=== PATIENT | female | born 1990 | race Caucasian/White ===

== ENCOUNTER 2020-02-12 18:21 | Emergency (ER) | payer BC ==
[2020-02-12 18:25] VITALS: RESP 18; TEMP 98.6
--- NOTE | 2020-02-12 18:54 | ED ---
General Adult HPI - General Chief complaint: Vaginal Bleeding Stated complaint: Approx 8 wks preg - bleeding Time Seen by Provider: 02/12/20 18:25 Source: patient Mode of arrival: ambulatory Limitations: no limitations - History of Present Illness Initial comments: Patient is a 29-year-old previously healthy female presents emergency room with reported vaginal bleeding. Last menstrual cycle was December 13. She took a test mid January which was positive. She is . Follow up with the primary care physician last week who referred her to an [facility] [facility]. Patient states she has just to establish care with them for [facility] She began having some vaginal bleeding yesterday. States that it is brown in color however she is not saturating any pads. She does admit to suprapubic cramping. Denies any abdominal trauma. Believes she is O- blood type. No vaginal discharge. No hematuria, dysuria or difficulty voiding. No changes in her bowel habit. No fevers or chills. No other alleviating, precipitating or modifying factors. - Related Data Home Medications Medication Instructions Recorded Confirmed Xfd-Pfpe-Guppb Acid 1 cap PO DAILY 02/12/20 02/12/20 [-U Capsule (formulary)] Allergies Allergy/AdvReac Type Severity Reaction Status Date / Time cefpodoxime [From Vantin] Allergy Unknown Verified 02/12/20 19:00 clarithromycin [From Biaxin] Allergy Unknown Verified 02/12/20 19:00 Review of Systems ROS Statement: Those systems with pertinent positive or pertinent negative responses have been documented in the HPI. ROS Other: All systems not noted in ROS Statement are negative. Past Medical History Past Medical History: No Reported History History of Any Multi-Drug Resistant Organisms: None Reported Past Surgical History: Back Surgery, Hernia Repair Additional Past Surgical History / Comment(s): eye surgery Past Psychological History: No Psychological Hx Reported Smoking Status: Never smoker Past Alcohol Use History: Occasional Past Drug Use History: None Reported General Exam Limitations: no limitations Course Vital Signs 02/12/20 02/12/20 18:23 21:18 Temperature 98.6 F 98.6 F Pulse Rate 96 88 Respiratory 18 18 Rate Blood Pressure 155/87 132/77 O2 Sat by Pulse 99 99 Oximetry Medical Decision Making - Medical Decision Making Upon review the patient is placed in room 10. A thorough history and physical exam is performed. Laboratory studies are conducted and the patient had an ultrasound performed. The patient is O-. Ultrasound demonstrates intrauterine sac with pole and yolk sac. No cardiac activity. Discuss results with the patient. She is given RhoGAM. The results are discussed with Dr. Fajardo. Patient will return to the emergency department or outpatient lab in 2 days to have repeat beta Quant drawn. Call the office tomorrow to make a quicker appointment with her GRE[facility]ETING SPECIALIST. She understood this. Return to the emergency room for any new or worsening symptoms. Patient was discharged home in stable condition - Lab Data Result diagrams: 02/12/20 19:24 02/12/20 19:24 Lab Results 02/12/20 02/12/20 02/12/20 Range/Units 19:24 19:24 19:24 WBC 9.8 (3.8-10.6) k/uL RBC 4.02 (3.80-5.40) m/uL Hgb 12.7 (11.4-16.0) gm/dL Hct 36.7 (34.0-46.0) % MCV 91.3 (80.0-100.0) fL MCH 31.6 (25.0-35.0) pg MCHC 34.6 (31.0-37.0) g/dL RDW 12.0 (11.5-15.5) % Plt Count 152 (150-450) k/uL MPV 8.0 Neutrophils % 83 % Lymphocytes % 10 % Monocytes % 5 % Eosinophils % 1 % Basophils % 0 % Neutrophils # 8.1 H (1.3-7.7) k/uL Lymphocytes # 1.0 (1.0-4.8) k/uL Monocytes # 0.5 (0-1.0) k/uL Eosinophils # 0.1 (0-0.7) k/uL Basophils # 0.0 (0-0.2) k/uL PT (9.0-12.0) sec INR (<1.2) APTT (22.0-30.0) sec Sodium 137 (137-145) mmol/L Potassium 3.5 (3.5-5.1) mmol/L Chloride 104 (98-107) mmol/L Carbon Dioxide 26 (22-30) mmol/L Anion Gap 7 mmol/L BUN 24 H (7-17) mg/dL Creatinine 0.76 (0.52-1.04) mg/dL Est GFR (CKD-EPI)AfAm >90 (>60 ml/min/1.73 sqM) Est GFR (CKD-EPI)NonAf >90 (>60 ml/min/1.73 sqM) Glucose 108 H (74-99) mg/dL Calcium 9.4 (8.4-10.2) mg/dL Total Bilirubin 0.6 (0.2-1.3) mg/dL AST 26 (14-36) U/L ALT 26 (4-34) U/L Alkaline Phosphatase 55 (38-126) U/L Total Protein 6.9 (6.3-8.2) g/dL Albumin 4.2 (3.5-5.0) g/dL HCG, Quant mIU/mL Urine Color Urine Appearance (Clear) Urine pH (5.0-8.0) Ur Specific [place] (1.001-1.035) Urine Protein (Negative) Urine Glucose (UA) (Negative) Urine Ketones (Negative) Urine Blood (Negative) Urine Nitrite (Negative) Urine Bilirubin (Negative) Urine Urobilinogen (<2.0) mg/dL Ur Leukocyte Esterase (Negative) Urine RBC (0-5) /hpf Urine WBC (0-5) /hpf Ur Squamous Epith Cells (0-4) /hpf Urine HCG, Qual Detected (Not Detectd) Blood Type Blood Type Confirm Blood Type Recheck Bld Type Recheck Status Antibody Screen 02/12/20 02/12/20 02/12/20 Range/Units 19:24 19:24 19:24 WBC (3.8-10.6) k/uL RBC (3.80-5.40) m/uL Hgb (11.4-16.0) gm/dL Hct (34.0-46.0) % MCV (80.0-100.0) fL MCH (25.0-35.0) pg MCHC (31.0-37.0) g/dL RDW (11.5-15.5) % Plt Count (150-450) k/uL MPV Neutrophils % % Lymphocytes % % Monocytes % % Eosinophils % % Basophils % % Neutrophils # (1.3-7.7) k/uL Lymphocytes # (1.0-4.8) k/uL Monocytes # (0-1.0) k/uL Eosinophils # (0-0.7) k/uL Basophils # (0-0.2) k/uL PT 9.9 (9.0-12.0) sec INR 0.9 (<1.2) APTT 26.2 (22.0-30.0) sec Sodium (137-145) mmol/L Potassium (3.5-5.1) mmol/L Chloride (98-107) mmol/L Carbon Dioxide (22-30) mmol/L Anion Gap mmol/L BUN (7-17) mg/dL Creatinine (0.52-1.04) mg/dL Est GFR (CKD-EPI)AfAm (>60 ml/min/1.73 sqM) Est GFR (CKD-EPI)NonAf (>60 ml/min/1.73 sqM) Glucose (74-99) mg/dL Calcium (8.4-10.2) mg/dL Total Bilirubin (0.2-1.3) mg/dL AST (14-36) U/L ALT (4-34) U/L Alkaline Phosphatase (38-126) U/L Total Protein (6.3-8.2) g/dL Albumin (3.5-5.0) g/dL HCG, Quant mIU/mL Urine Color Light Yellow Urine Appearance Clear (Clear) Urine pH 5.5 (5.0-8.0) Ur Specific [place] 1.019 (1.001-1.035) Urine Protein Negative (Negative) Urine Glucose (UA) Negative (Negative) Urine Ketones Trace H (Negative) Urine Blood Moderate H (Negative) Urine Nitrite Negative (Negative) Urine Bilirubin Negative (Negative) Urine Urobilinogen <2.0 (<2.0) mg/dL Ur Leukocyte Esterase Negative (Negative) Urine RBC 70 H (0-5) /hpf Urine WBC 1 (0-5) /hpf Ur Squamous Epith Cells <1 (0-4) /hpf Urine HCG, Qual (Not Detectd) Blood Type O Negative Blood Type Confirm Blood Type Recheck No Previous Record Bld Type Recheck Status CABO Indicated Antibody Screen NEGATIVE 02/12/20 02/12/20 Range/Units 19:24 19:58 WBC (3.8-10.6) k/uL RBC (3.80-5.40) m/uL Hgb (11.4-16.0) gm/dL Hct (34.0-46.0) % MCV (80.0-100.0) fL MCH (25.0-35.0) pg MCHC (31.0-37.0) g/dL RDW (11.5-15.5) % Plt Count (150-450) k/uL MPV Neutrophils % % Lymphocytes % % Monocytes % % Eosinophils % % Basophils % % Neutrophils # (1.3-7.7) k/uL Lymphocytes # (1.0-4.8) k/uL Monocytes # (0-1.0) k/uL Eosinophils # (0-0.7) k/uL Basophils # (0-0.2) k/uL PT (9.0-12.0) sec INR (<1.2) APTT (22.0-30.0) sec Sodium (137-145) mmol/L Potassium (3.5-5.1) mmol/L Chloride (98-107) mmol/L Carbon Dioxide (22-30) mmol/L Anion Gap mmol/L BUN (7-17) mg/dL Creatinine (0.52-1.04) mg/dL Est GFR (CKD-EPI)AfAm (>60 ml/min/1.73 sqM) Est GFR (CKD-EPI)NonAf (>60 ml/min/1.73 sqM) Glucose (74-99) mg/dL Calcium (8.4-10.2) mg/dL Total Bilirubin (0.2-1.3) mg/dL AST (14-36) U/L ALT (4-34) U/L Alkaline Phosphatase (38-126) U/L Total Protein (6.3-8.2) g/dL Albumin (3.5-5.0) g/dL HCG, Quant 6460.6 mIU/mL Urine Color Urine Appearance (Clear) Urine pH (5.0-8.0) Ur Specific [place] (1.001-1.035) Urine Protein (Negative) Urine Glucose (UA) (Negative) Urine Ketones (Negative) Urine Blood (Negative) Urine Nitrite (Negative) Urine Bilirubin (Negative) Urine Urobilinogen (<2.0) mg/dL Ur Leukocyte Esterase (Negative) Urine RBC (0-5) /hpf Urine WBC (0-5) /hpf Ur Squamous Epith Cells (0-4) /hpf Urine HCG, Qual (Not Detectd) Blood Type Blood Type Confirm O Negative Blood Type Recheck Bld Type Recheck Status Antibody Screen Disposition Clinical Impression: Vaginal bleeding, Threatened miscarriage, Rh negative status during Disposition: HOME SELF-CARE Condition: Stable Instructions (If sedation given, give patient instructions): Threatened Miscarriage (ED) Additional Instructions: You need to come to the outpatient lab on Wednesday to have your lab studies drawn. Call the [facility] tomorrow to schedule a sooner appointment. Take tylenol for pain. You will need a repeat ultrasound in 1 week. Return to the emergency department for any new or worsening symptoms Is patient prescribed a controlled substance at d/c from ED?: No Referrals: Jose Elias Joseph MD [Primary Care Provider] - 1-2 days Chelsea Kim DO [Doctor of Osteopathic Medicine] - 1-2 days Time of Disposition: 21:06
[2020-02-12 19:38] LABS: Basophils % (A) 0 %; Eosinophils # (A) 0.1 k/uL (0-0.7); Eosinophils % (A) 1 %; HCT 36.7 % (34.0-46.0); HGB 12.7 gm/dL (11.4-16.0); Lymphocytes % (A) 10 %; MCH 31.6 pg (25.0-35.0); MCHC 34.6 g/dL (31.0-37.0); MCV 91.3 fL (80.0-100.0); Monocytes # (A) 0.5 k/uL (0-1.0); Monocytes % (A) 5 %; Neutrophils # (A) 8.1 k/uL (1.3-7.7); Neutrophils % (A) 83 %; Platelet Count 152 k/uL (150-450); RBC 4.02 m/uL (3.80-5.40); WBC 9.8 k/uL (3.8-10.6)
[2020-02-12 19:46] LABS: Appearance,Urine Clear (Clear); Bilirubin,Urine Negative (Negative); Blood,Urine Moderate (Negative); Color,Urine Light Yellow; Glucose,Urine (UA) Negative (Negative); Ketones,Urine Trace (Negative); Leukocyte Esterase,Urine Negative (Negative); Nitrite,Urine Negative (Negative); PH, Urine 5.5 (5.0-8.0); Protein,Urine Negative (Negative); RBC,Urine 70 /hpf (0-5); Specific Gravity,Urine 1.019 (1.001-1.035); Squamous Epithelial Cell,Urine <1 /hpf (0-4); Urobilinogen,Urine <2.0 mg/dL (<2.0); WBC,Urine 1 /hpf (0-5)
[2020-02-12 19:47] LABS: ALT 26 U/L (4-34); AST 26 U/L (14-36); African American GFR (CKD) >90 (>60 ml/min/1.73 sqM); Albumin 4.2 g/dL (3.5-5.0); Alkaline Phosphatase 55 U/L (38-126); Anion Gap 7 mmol/L; Blood Urea Nitrogen 24 mg/dL (7-17); Calcium 9.4 mg/dL (8.4-10.2); Carbon Dioxide 26 mmol/L (22-30); Chloride 104 mmol/L (98-107); Glucose 108 mg/dL (74-99); Non-African American GFR(CKD) >90 (>60 ml/min/1.73 sqM); Potassium 3.5 mmol/L (3.5-5.1); Sodium 137 mmol/L (137-145); Total Bilirubin 0.6 mg/dL (0.2-1.3); Total Protein 6.9 g/dL (6.3-8.2)
[2020-02-12 19:49] LABS: INR 0.9 (<1.2); Partial Thromboplastin Time 26.2 sec (22.0-30.0); Prothrombin Time 9.9 sec (9.0-12.0)
[2020-02-12] MEDS ORDERED: Rhogam IMMUNE GLOBULIN 1,500 UNIT/1 ML IM ONE (20:28)
--- NOTE | 2020-02-12 20:29 | US ---
EXAMINATION TYPE: Transabdominal DATE OF EXAM: 02/12/2020 8:13 PM COMPARISON: NONE CLINICAL HISTORY: pain. Pain x 2 days. . EXAM PERFORMED: Transvaginal (TV) and Transabdominal (TA) EXAM MEASUREMENTS: GESTATIONAL AGE / DATING Physician Established: Not yet established. Dates by LMP: ( 8 weeks/4 days) EDC: 09/19/2020 Dates by First Scan: This is first scan Dates by Current Scan for: (6 weeks/0 days) EDC: 10/07/2020 MATERNAL ANATOMY Uterus: 8.6 x 5.8 x 4.8 cm. Anteverted. Gestational sac appears to be in the mid-lower uterine area. Right Ovary: 3.1 x 1.9 x 1.6 cm. Left Ovary: 3.5 x 1.9 x 2.7 cm. Area of mixed echogenicity and peripheral vascularity seen as mention ed below measurin.7 x 1.3 x 1.7 cm. Post CDS / Adnexa: Fluid seen in CDS and right adnexa. Presence of free fluid: Yes Presence of corpus luteal cyst: Area of mixed echogenicity and peripheral vascularity seen in left ov mirna measurin.7 x 1.3 x 1.7 cm. Presence of subchorionic bleed: Hypoechoic area seen adjacent to the gestational sac: 0.8 x 1.6 x 1.0 cm. GESTATION / SURVEY CRL: 0.37 cm. (6 weeks/0 days) Yolk Sac (normal less than 6mm): 2.1 mm. Heart Rate: Not detected at this time. Possibly too early to see heart tones? IUP: CRL visualized, no heart tones seen at this time. Possibly too early to visualize. Date of LMP: 12/14/2019 Beta HcG (if available): Detected IMPRESSION: Intrauterine Gestational sac with pole and yolk sac. Follow-up exam is recommended in 10 days t o confirm cardiac activity. Gestational sac is slightly low in the endometrial cavity. No evidence of ectopic .
[2020-02-12 21:19] VITALS: BP 132/77; PULSE 88
== END 2020-02-12 21:28 | disposition home or self-care (01) ==
LOC: EC 18:21
DX: O20.0 Threatened abortion (principal); O26.899 Other specified pregnancy related conditions, unspecified trimester; Z88.1 Allergy status to other antibiotic agents
CPT/HCPCS: 36415; 86900; 86901; 80053; 85025; 85610; 85730; 86850; 81001; 81025; 84702; 87086; 76801; 76817; 99284; 96372; J2791

== ENCOUNTER → 2020-02-14 | Outpatient (CLI) | payer BC | END | disposition home or self-care (01) | LOC: LABMAIN 19:34 | PROVIDERS: ATTEND Emergency Medicine | DX: O20.0 Threatened abortion (principal) | CPT/HCPCS: 36415; 84702 ==

== ENCOUNTER 2021-01-04 10:00 | Inpatient (IN) | payer BC ==
[2021-01-04] MEDS ORDERED: OXYTOCIN 10 UNIT/ML 1 ML VIAL IM PRN (11:00)
[2021-01-04] MEDS ORDERED: CARBOPROST TROMETHAMINE 250 MCG/ML 1 ML AMP IM PRN (11:00)
[2021-01-04] MEDS ORDERED: METHYLERGONOVINE 0.2 MG/ML 1 ML AMP IM PRN (11:00)
[2021-01-04] MEDS ORDERED: TERBUTALINE 1 MG/ML VIAL SQ PRN (11:00)
[2021-01-04] MEDS ORDERED: PENICILLIN G POTASSIUM 5,000,000 UNIT in DEXTROSE 5% IN WATER 100 ML IVPB STA ×2 (11:00)
[2021-01-04] MEDS ORDERED: LIDOCAINE 0.5% (PF) 5 MG/ML (50 ML SDV) SQ PRN (11:00)
[2021-01-04] MEDS: LACTATED RINGERS 1,000 ML IV SCH ×2 (11:10→14:48)
--- NOTE | 2021-01-04 11:12 | P.HPOB ---
History of Present Illness H&P Date: 01/04/21 Chief Complaint: Contractions at term This is a 30 year old 2 para 0010 woman with an estimated due date of 01/04/2021 based on first trimester ultrasound. She presents with several hours of irregular but strong uterine contractions. She denies vaginal bleeding or leakage of fluids. Upon presentation to labor and delivery triage she is found to be irregularly maite every 2-7 minutes. Her cervix is 4.5 cm dilated, 100% effaced, vertex in the -3 station with bulging membranes. heart tones are category 1. Of note she does have significantly elevated initial blood pressures in the 150s over 100s. The patient reports feeling well. She denies headaches, visual changes, nausea, abdominal pain, increased in swelling. She does report her blood pressures being elevated in the office at her last couple of visits however all repeat blood pressure monitoring has been normal. She is known group B strep positive and Rh-. Laboratory data: Blood type O-, antibody screen negative, rubella non-immune, VDRL nonreactive, hepatitis B surface antigen negative, HIV negative, gonorrhea and clinic cultures negative, group B strep positive. Obstetric history: Spontaneous miscarriage in 2019. Review of Systems All systems: negative Past Medical History Past Medical History: No Reported History History of Any Multi-Drug Resistant Organisms: None Reported Past Surgical History: Back Surgery, Hernia Repair Additional Past Surgical History / Comment(s): eye surgery Past Psychological History: Anxiety Smoking Status: Never smoker Past Alcohol Use History: None Reported Past Drug Use History: None Reported Medications and Allergies Home Medications Medication Instructions Recorded Confirmed Type Sqr-Knwk-Isvkx Acid 1 cap PO DAILY 02/12/20 02/12/20 History [-U Capsule (formulary)] Allergies Allergy/AdvReac Type Severity Reaction Status Date / Time cefpodoxime [From Vantin] Allergy Unknown Verified 01/04/21 10:15 clarithromycin [From Biaxin] Allergy Unknown Verified 01/04/21 10:15 Exam Intake and Output 01/03/21 01/04/21 01/04/21 22:59 06:59 14:59 Other: Weight 68.039 kg This is a pleasant, visibly gravid, female in the active labor. Targeted physical exam is performed. The abdomen is gravid, soft with intermittent palpable contractions. No right upper quadrant pain. Extremities show trace edema and 3+ deep tendon reflexes, no clonus. On cervical exam per RN she is 4.5 cm dilated, 100% effaced and vertex in the -3 station. heart tones are category 1. Assessment and Plan (1) GBS (group B Streptococcus carrier), +RV culture, currently Current Visit: Yes Status: Acute Code(s): O99.820 - STREPTOCOCCUS B CARRIER STATE COMPLICATING SNOMED Code(s): 8464201014507 (2) induced hypertension Current Visit: Yes Status: Acute Code(s): O13.9 - GESTATIONAL HTN W/O SIGNIFICANT PROTEINURIA, UNSP TRIMESTER SNOMED Code(s): 89011737 (3) Rh negative, maternal Current Visit: Yes Status: Acute Code(s): O26.899 - OTH RELATED CONDITIONS, UNSPECIFIED TRIMESTER; Z67.91 - UNSPECIFIED BLOOD TYPE, RH NEGATIVE SNOMED Code(s): 175964891 (4) Spontaneous onset of labor Current Visit: Yes Status: Acute Code(s): NOK7676 - SNOMED Code(s): 68163730 (5) Rubella non-immune status, antepartum Current Visit: Yes Status: Acute Code(s): O99.891 - OTH DISEASES AND CONDITIONS COMPLICATING ; Z28.3 - UNDERIMMUNIZATION STATUS SNOMED Code(s): 008801560 Plan: This is a 30-year-old 2 para 0 woman at 40-0/7 weeks gestation presenting in active labor with hypertension. She is counseled regarding po ssibility of preeclampsia. Labs are pending. She will receive group B strep prophylactic antibiotics and proceed with augmentation of labor if indicated. Pending results of labs and ongoing blood pressures magnesium sulfate seizure prophylaxis will be initiated as indicated. status is currently reassuring. Anticipate normal spontaneous vaginal delivery.
[2021-01-04 11:47] LABS: ALT 20 U/L (4-34); AST 28 U/L (14-36); African American GFR (CKD) >90 (>60 ml/min/1.73 sqM); Blood Urea Nitrogen 21 mg/dL (7-17); LDH 418 U/L (313-618); Non-African American GFR(CKD) >90 (>60 ml/min/1.73 sqM); Uric Acid 4.8 mg/dL (3.7-7.4)
[2021-01-04 11:58] LABS: INR 0.8 (<1.2); Prothrombin Time 9.3 sec (9.0-12.0)
[2021-01-04 12:03] LABS: Creatinine,Urine Random 86.1 mg/dL; Protein/Creatinine Ratio,Urine 0.116
[2021-01-04 12:04] LABS: Appearance,Urine Cloudy (Clear); Bilirubin,Urine Negative (Negative); Blood,Urine Small (Negative); Color,Urine Yellow; Glucose,Urine (UA) Negative (Negative); Ketones,Urine Negative (Negative); Leukocyte Esterase,Urine Negative (Negative); Mucus,Urine Occasional /hpf; Nitrite,Urine Negative (Negative); Protein,Urine Trace (Negative); RBC,Urine 5 /hpf (0-5); Specific Gravity,Urine 1.017 (1.001-1.035); Squamous Epithelial Cell,Urine 1 /hpf (0-4); Urobilinogen,Urine <2.0 mg/dL (<2.0); WBC,Urine 5 /hpf (0-5)
[2021-01-04 12:31] LABS: Basophils % (A) 0 %; Eosinophils % (A) 0 %; HCT 40.4 % (34.0-46.0); HGB 13.8 gm/dL (11.4-16.0); Lymphocytes % (A) 9 %; MCH 31.7 pg (25.0-35.0); MCHC 34.3 g/dL (31.0-37.0); MCV 92.6 fL (80.0-100.0); Monocytes # (A) 0.5 k/uL (0-1.0); Monocytes % (A) 5 %; Neutrophils # (A) 10.1 k/uL (1.3-7.7); Neutrophils % (A) 86 %; Platelet Count 163 k/uL (150-450); RBC 4.36 m/uL (3.80-5.40); WBC 11.8 k/uL (3.8-10.6)
[2021-01-04] MEDS ORDERED: LABETALOL 5 MG/ML VIAL MDV IVP STA (12:36)
[2021-01-04] MEDS ORDERED: OXYTOCIN 30 UNITS/500 ML NS 30 UNIT in SALINE 1 500ML.BAG IV SCH ×2 (14:00→20:45)
[2021-01-04] MEDS ORDERED: fentaNYL (PF) 50 MCG/ML 5 ML AMP ONE (14:27)
[2021-01-04] MEDS ORDERED: SODIUM CHLORIDE 0.9% 100 ML BAG ONE (14:27)
[2021-01-04] MEDS ORDERED: ROPIVACAINE 5MG/ML 20ML VIAL ONE (14:27)
[2021-01-04] MEDS ORDERED: ROPIVACAINE 100 MG, fentaNYL (PF). 200 MCG in SODIUM CHLORIDE 0.9% 76 ML EPIDURAL ONE (15:06)
[2021-01-04] MEDS: PENICILLIN G POTASSIUM 2,500,000 UNIT in DEXTROSE 5% IN WATER 100 ML IVPB SCH ×4 (16:25→23:30)
[2021-01-04] MEDS ORDERED: diphenhydrAMINE 25 MG CAP PO PRN (20:33)
[2021-01-04] MEDS ORDERED: HYDROcodone/APAP 5-325MG 1 EACH TAB PO PRN (20:33)
[2021-01-04] MEDS ORDERED: ZOLPIDEM 5 MG TAB PO PRN (20:33)
[2021-01-04] MEDS ORDERED: MEASLES-MUMPS-RUBELLA VACC/PF 12,500 UNIT/0.5 ML VIAL SQ ONE (20:33)
[2021-01-04] MEDS ORDERED: diphenhydrAMINE 50 MG CAP PO PRN (20:33)
[2021-01-04] MEDS ORDERED: LANOLIN CREAM 5 GM TUBE TOPICAL PRN (20:33)
[2021-01-04] MEDS ORDERED: BENZOCAINE/MENTHOL SPRAY 1 GM/SPRAY AEROSOL TOPICAL PRN (20:33)
[2021-01-04] MEDS ORDERED: diphenhydrAMINE 50 MG/ML 1 ML VIAL IVP PRN ×2 (20:33)
[2021-01-04] MEDS ORDERED: HYDROCORTISONE 2.5% RECTAL CREAM 30 GM TUBE RECTAL PRN (20:33)
[2021-01-04] MEDS ORDERED: SIMETHICONE 80 MG CHEWABLE PO PRN (20:33)
--- NOTE | 2021-01-04 20:33 | P.PROBDLV ---
Vaginal Delivery Note - . Vaginal Delivery Note: findings: Female in the direct occiput anterior position with Apgars of 7 at 1 minute and 8 at 5 minutes weighing 7 lbs. 2 oz., 3225 g. Nuchal cord 1. Intact, three-vessel cord placenta with calcifications. Third-degree irregular perineal laceration. EBL 350 mL's. Delivery summary: This is a 30 year old 2 para 0 woman who presented at 40-0/7 weeks gestation in early active labor. She had significantly elevated blood pressures however preeclamptic labs were within normal limits. She did receive IV labetalol 10 mg 1 to control her blood pressures during labor. She underwent artificial rupture of membranes at approximately 6 cm dilated and copious clear fluid was noted. She received an epidural anesthetic. She had an approximately six-hour active first stage of labor. She had category 2 heart tones. She had decreased variability however no recurrent decelerations. She reached complete cervical dilation and commenced pushing. She had a 2 hour and 20 minute second stage of labor. When infant reached she was repos itioned, prepped and draped in the dorsal lithotomy position. With maternal effort the head delivered from the direct occiput anterior position. The shoulders were noted to be most completely transverse. The left shoulder which was to the maternal left was rotated internally to facilitate the rest of the delivery of the infant. Nuchal cord was then reduced and the nose and mouth were bulb suctioned on the field as the was placed on the maternal abdomen. Cord was eventually clamped and cut and infant was taken to the warmer for evaluation. The perineum was inspected and a ragged, irregular third-degree laceration was noted. This was infused copiously with lidocaine. The apex of the laceration was identified and suture ligated in a running fashion down to the level of the area of the hymeneal ring. A second 3-0 Vicryl suture was then utilized to reapproximate the capsule as well as muscular body of the perianal muscle. Mucosa appeared intact. Following reapproximation of the muscle the overlying vaginal Koza was then closed in an ongoing running locked fashion. At this point of the placenta had still not delivered. Pitocin was increased. The bleeding edge of the placenta was found to be at this point in the vagina however secondary to extreme maternal exhaustion was difficult for her to assist in delivery of the placenta. Gentle ongoing downward traction on the cord was employed until the front edge of the placenta was able to be grasped. This allowed for delivery of the placenta. It appears intact with 3 vessels and some calcifications. The uterus was then massaged and the bladder was drained by straight catheter for approximately 100 mL of clear urine. The vagina was then carefully reinspected and the laceration appeared to be completely reappr oximated. With patient consent rectal exam was then performed and no defects were noted. EBL was approximately 350 mL's both mother and were doing well but exhausted post delivery in the room.WERE correct.
[2021-01-04] MEDS: IBUPROFEN 600 MG TAB PO SCH (21:14)
[2021-01-04] MEDS: ACETAMINOPHEN TAB 325 MG TAB PO PRN (23:27)
[2021-01-05] MEDS: IBUPROFEN 600 MG TAB PO SCH ×3 (05:54→19:16)
[2021-01-05] MEDS ORDERED: Rhogam IMMUNE GLOBULIN 1,500 UNIT/1 ML IM ONE (05:55)
[2021-01-05 06:54] LABS: Basophils % (A) 0 %; Eosinophils % (A) 0 %; HCT 30.5 % (34.0-46.0); Lymphocytes # (A) 0.9 k/uL (1.0-4.8); Lymphocytes % (A) 6 %; MCHC 34.2 g/dL (31.0-37.0); MCV 93.4 fL (80.0-100.0); Mean Platelet Volume 10.6; Monocytes # (A) 0.7 k/uL (0-1.0); Monocytes % (A) 5 %; Neutrophils # (A) 11.9 k/uL (1.3-7.7); Neutrophils % (A) 87 %; Platelet Count 142 k/uL (150-450); RBC 3.26 m/uL (3.80-5.40); RDW 13.3 % (11.5-15.5); WBC 13.8 k/uL (3.8-10.6)
[2021-01-05 06:56] LABS: HGB 10.4 gm/dL (11.4-16.0)
[2021-01-05] MEDS: SENNOSIDES-DOCUSATE SODIUM 1 EACH TAB PO SCH ×2 (08:18→19:17)
[2021-01-05] MEDS: ACETAMINOPHEN TAB 325 MG TAB PO PRN ×2 (08:18→16:12)
--- NOTE | 2021-01-05 11:18 | P.PNOBGVD ---
Subjective - Subjective Principal diagnosis: day 1 Interval history: Feeling exhausted. Had a vasovagal episode in the shower last night. She is feeling much better she's been able to eat unrestricted. Patient reports: Reports appetite normal, Reports voiding normally, Reports pain well controlled, Reports ambulating normally, Denies dizzy ambulation, Denies nauseated : doing well (CBC and blood cultures pending for low temperature.) Objective - Latest Vital Signs Latest vital signs: Vital Signs Temp Pulse Resp BP 01/05/21 08:00 98.3 F 84 16 121/72 01/05/21 04:00 97.8 F 92 16 101/68 01/05/21 00:00 97.7 F 89 16 135/87 01/04/21 22:30 97.7 F 93 16 133/86 01/04/21 22:00 101 H 16 137/93 01/04/21 21:30 94 16 139/90 01/04/21 21:15 88 16 139/90 01/04/21 21:00 92 18 144/92 01/04/21 20:45 97.7 F 96 18 145/101 01/04/21 20:30 97.7 F 96 18 142/99 Intake and Output 01/04/21 01/05/21 01/05/21 22:59 06:59 14:59 Intake Total 222.667 Balance 222.667 Intake: Intake, IV Titration 222.667 Amount Oxytocin 30 Units/500 ml 222.667 Ns 30 unit In Saline 1 500ml.bag @ Per Protocol IV .Q0M [facility] Rx#:[id number] Other: # Voids 1 1 - Exam Extremities: Present: normal. Absent: edema Abdomen: Present: normal appearance, soft. Absent: tenderness Uterus: Present: normal, firm - Labs Labs: Abnormal Lab Results - Last 24 Hours (Table) 01/04/21 01/04/21 01/04/21 Range/Units 11:02 11:02 11:05 WBC 11.8 H (3.8-10.6) k/uL RBC (3.80-5.40) m/uL Hgb (11.4-16.0) gm/dL Hct (34.0-46.0) % Plt Count (150-450) k/uL Neutrophils # 10.1 H (1.3-7.7) k/uL Lymphocytes # (1.0-4.8) k/uL BUN 21 H (7-17) mg/dL Urine Appearance Cloudy H (Clear) Urine Protein Trace H (Negative) Urine Blood Small H (Negative) Urine Mucus Occasional H (None) /hpf 01/05/21 Range/Units 06:38 WBC 13.8 H (3.8-10.6) k/uL RBC 3.26 L (3.80-5.40) m/uL Hgb 10.4 L D (11.4-16.0) gm/dL Hct 30.5 L (34.0-46.0) % Plt Count 142 L (150-450) k/uL Neutrophils # 11.9 H (1.3-7.7) k/uL Lymphocytes # 0.9 L (1.0-4.8) k/uL BUN (7-17) mg/dL Urine Appearance (Clear) Urine Protein (Negative) Urine Blood (Negative) Urine Mucus (None) /hpf Assessment and Plan (1) GBS (group B Streptococcus carrier), +RV culture, currently Current Visit: Yes Status: Acute Code(s): O99.820 - STREPTOCOCCUS B CARRIER STATE COMPLICATING SNOMED Code(s): 6366942192691 (2) induced hypertension Current Visit: Yes Status: Acute Code(s): O13.9 - GESTATIONAL HTN W/O SIGNIFICANT PROTEINURIA, UNSP TRIMESTER SNOMED Code(s): 83254967 (3) Rh negative, maternal Current Visit: Yes Status: Acute Code(s): O26.899 - OTH RELATED CONDITIONS, UNSPECIFIED TRIMESTER; Z67.91 - UNSPECIFIED BLOOD TYPE, RH NEGATIVE SNOMED Code(s): 940190393 (4) Spontaneous onset of labor Current Visit: Yes Status: Acute Code(s): [id number] - SNOMED Code(s): 41535921 (5) Rubella non-immune status, antepartum Current Visit: Yes Status: Acute Code(s): O99.891 - OTH DISEASES AND CONDITIONS COMPLICATING ; Z28.3 - UNDERIMMUNIZATION STATUS SNOMED Code(s): 197692024 (6) Normal spontaneous vaginal delivery Current Visit: Yes Status: Acute Code(s): O80 - ENCOUNTER FOR FULL-TERM UNCOMPLICATED DELIVERY SNOMED Code(s): 13622428 (7) Nuchal cord Current Visit: Yes Status: Acute Code(s): O69.81X0 - LABOR AND DEL COMP BY CORD AROUND NECK, W/O COMPRSN, UNSP SNOMED Code(s): 681801906 (8) Perineal laceration with delivery, third degree Current Visit: Yes Status: Acute Code(s): O70.20 - THIRD DEGREE PERINEAL LACERATION DURING DELIVERY, UNSP SNOMED Code(s): 31226221 Plan: day #1 status post normal spontaneous vaginal delivery after a prolonged second stage of labor and third degree perineal laceration. She is recovering well. Perineum appears intact. She is able to void spontaneously. Perineal care and pain medication use reviewed.
--- NOTE | 2021-01-05 11:20 | P.MSEPDOC ---
Presenting Problems - Arrival Data Date of Arrival on Unit: 01/04/21 Time of Arrival on Unit: 10:37 Mode of Transport: Wheelchair - Complaint OB-Reason for Admission/Chief Complaint: Possible Onset of Labor Comment: pt presents to triage for contractions 5-7 min apart, getting more painful Medical History - Information : 2 Para: 0 Term: 0 : 0 Abortions: Spontaneous or Elective: 0 Number of Living Children: 0 - Gestational Age Gestational Age by FARRUKH (wks/days): 40 Weeks and 0 Days - History Complications: GBS+ Review of Systems - Review of Systems Constitutional: No problems Breast: No problems ENT: No problems Cardiovascular: No problems Respiratory: No problems Gastrointestinal: No problems Genitourinary: No problems Musculoskeletal: No problems Neurological: No problems Skin: No problems Vital Signs - Temperature Temperature: 98.3 F Temperature Source: Oral - Pulse Right Brachial Pulse Rate: 84 Pulse Assessment Method: Automatic Cuff - Respirations Respiratory Rate: 16 Oxygen Delivery Method: Room Air - Blood Pressure Right Arm Blood Pressure: 121/72 Blood Pressure Mean: 88 Blood Pressure Source: Automatic Cuff Medical Screen Scoring - Cervical Exam Dilation (cm): 4.5 Effacement (%): 100 Station: -2 Membranes: Intact - Uterine Contractions Frequency From (mins): 2 Frequency To (mins): 5 Duration From (seconds): 40 Duration To (seconds): 70 Intensity: Mild Resting: Soft to palpation - Assessment - Baby A Baseline FHR: 130 Heart Rate - NICHD Category: Category I (Normal) Physician Notification - Physician Notified Physician Notified Date: 01/04/21 Physician Notified Time: 10:37 Physician: Viry Murray New Order Received: Yes - Notification Comment Comment: updated on pt status Maternal Triage Index - Stat/Priority 1 Stat Priority 1: Yes Provider Notified: Viry Murray Provider Notified Time: 10:37 Criteria Met for Priority 1: pt is 40 weeks today, contractions 5-7 min apart, inital bp 155/123 Disposition - Disposition OB Disposition: Admit, LDRP Suite I agree with the RN Medical Screening Exam: Yes Case reviewed; plan agreed upon as documented in EMR&OBIX.: Yes Diagnosis: labor at term
[2021-01-06] MEDS: ACETAMINOPHEN TAB 325 MG TAB PO PRN ×2 (00:03→08:06)
[2021-01-06] MEDS: IBUPROFEN 600 MG TAB PO SCH ×2 (01:29→04:47)
[2021-01-06 04:47] VITALS: RESP 16
[2021-01-06 08:11] VITALS: BP 140/84; PULSE 83; TEMP 98.2
--- NOTE | 2021-01-06 08:53 | P.DS ---
Providers Date of admission: 01/04/21 10:37 Expected date of discharge: 01/06/21 Attending physician: Viry Murray Primary care physician: Chelsea Kim - Discharge Diagnosis(es) (1) GBS (group B Streptococcus carrier), +RV culture, currently Current Visit: Yes Status: Acute (2) Normal spontaneous vaginal delivery Current Visit: Yes Status: Acute (3) Nuchal cord Current Visit: Yes Status: Acute (4) Perineal laceration with delivery, third degree Current Visit: Yes Status: Acute (5) induced hypertension Current Visit: Yes Status: Acute (6) Rh negative, maternal Current Visit: Yes Status: Acute (7) Rubella non-immune status, antepartum Current Visit: Yes Status: Acute (8) Spontaneous onset of labor Current Visit: Yes Status: Acute Hospital Course: this is a 30-year-old 2 para 0 that presented to labor and delivery at 40-0/7 weeks in early active labor. Patient had elevated blood pressures upon admission but preeclamptic labs were normal. Patient did receive one IV dose of labetalol to control blood pressures during labor. Patient underwent amniotomy when she was a proximally 6 cm with clear fluid appreciated. Patient did receive an epidural during labor. Patient progressed to complete, underwent a normal spontaneous vaginal delivery of a viable female infant, weight of 7 pounds 1.8 ounces, Apgars of 7 and 8 at one and 5 minutes respect weight. Patient did sustain a third degree vaginal laceration which was repaired in the usual fashion. Patient's course has been uneventful. On this day #2 she is ambulating and voiding without difficulty. She is tolerating a regular diet without nausea or vomiting. States her pain is well- controlled. Discharge instructions were reviewed. Patient Condition at Discharge: Good Plan - Discharge Summary New Discharge Prescriptions: No Action Aqa-Ohqw-Tkhce Acid [-U Capsule (formulary)] 1 cap PO DAILY Discharge Medication List Yxi-Lhcb-Dyhuo Acid [-U Capsule (formulary)] 1 cap PO DAILY 02/12/20 [History] Follow up Appointment(s)/Referral(s): Chelsea Kim DO [Primary Care Provider] - 4 Weeks Patient Instructions/Handouts: Vaginal Delivery (DC), Vaginal Delivery (GEN) Activity/Diet/Wound Care/Special Instructions: jcpv-[id number] ibuprofen 600 mg every 6 hours as needed, discussed senna/S for stool softeners given her third degree laceration. instructions reviewed. Bleeding precautions discussed. Follow-up appointment in 4 weeks for routine check. Patient is to call the office should she have any concerns prior to her visit. Discharge Disposition: HOME SELF-CARE
[2021-01-06] MEDS: SENNOSIDES-DOCUSATE SODIUM 1 EACH TAB PO SCH (10:32)
== END 2021-01-06 11:50 | disposition home or self-care (01) | DRG 768 ==
LOC: FBPOP 10:00 → 4FBP 10:37
PROVIDERS: ADMIT Obstetrics & Gynecology; ATTEND Obstetrics & Gynecology
PROC: 10E0XZZ Delivery of Products of Conception, External Approach (ICD-10-PCS; principal; 2021-01-04)
PROC: 0DQR0ZZ Repair Anal Sphincter, Open Approach (ICD-10-PCS; 2021-01-04)
PROC: 10907ZC Drainage of Amniotic Fluid, Therapeutic from Products of Conception, Via Natural or Artificial Opening (ICD-10-PCS; 2021-01-04)
DX: O99.824 Streptococcus B carrier state complicating childbirth (principal); Z37.0 Single live birth; O69.81X0 Labor and delivery complicated by cord around neck, without compression, not applicable or unspecified; O70.20 Third degree perineal laceration during delivery, unspecified; O99.344 Other mental disorders complicating childbirth; O75.81 Maternal exhaustion complicating labor and delivery; Z3A.40 40 weeks gestation of pregnancy; O13.4 Gestational [pregnancy-induced] hypertension without significant proteinuria, complicating childbirth; F41.9 Anxiety disorder, unspecified; R55 Syncope and collapse; Z67.91 Unspecified blood type, Rh negative
CPT/HCPCS: 59025; 81001; 81003; 82565; 82570; 83615; 84156; 84450; 84460; 84520; 84550; 85025; 85461; 85610; 85730; 86850; 86900; 86901; 99213

== ENCOUNTER 2022-04-01 10:55 | Inpatient (IN) | payer BC ==
[2022-04-06] MEDS ORDERED: TERBUTALINE 1 MG/ML VIAL SQ PRN (06:39)
[2022-04-06] MEDS ORDERED: OXYTOCIN 10 UNIT/ML 1 ML VIAL IM PRN (06:39)
[2022-04-06] MEDS ORDERED: CARBOPROST TROMETHAMINE 250 MCG/ML 1 ML AMP IM PRN (06:39)
[2022-04-06] MEDS ORDERED: TRANEXAMIC ACID IN NACL,ISO-OS 1,000 MG in EMPTY BAG 1 BAG IV PRN (06:39)
[2022-04-06] MEDS ORDERED: LIDOCAINE 0.5% (PF) 5 MG/ML (50 ML SDV) SQ PRN (06:39)
[2022-04-06] MEDS ORDERED: METHYLERGONOVINE 0.2 MG/ML 1 ML AMP IM PRN (06:39)
[2022-04-06] MEDS ORDERED: miSOPROStoL 200 MCG TAB PO PRN (06:39)
[2022-04-06] MEDS ORDERED: OXYTOCIN 30 UNITS/500 ML NS 30 UNIT in SALINE 1 500ML.BAG IV SCH ×2 (06:45→14:30)
[2022-04-06] MEDS: LACTATED RINGERS 1,000 ML IV SCH ×2 (07:00→12:39)
[2022-04-06 07:28] LABS: Basophils % (A) 0 %; Eosinophils # (A) 0.1 k/uL (0-0.7); Eosinophils % (A) 1 %; HGB 12.6 gm/dL (11.4-16.0); Lymphocytes # (A) 1.3 k/uL (1.0-4.8); Lymphocytes % (A) 19 %; MCH 30.3 pg (25.0-35.0); MCV 89.1 fL (80.0-100.0); Mean Platelet Volume 9.3; Monocytes # (A) 0.4 k/uL (0-1.0); Monocytes % (A) 6 %; Neutrophils # (A) 5.1 k/uL (1.3-7.7); Neutrophils % (A) 73 %; Platelet Count 152 k/uL (150-450); RBC 4.15 m/uL (3.80-5.40); RDW 12.6 % (11.5-15.5)
[2022-04-06] MEDS ORDERED: SODIUM CHLORIDE 0.9% 100 ML BAG ONE (10:27)
[2022-04-06] MEDS ORDERED: ROPIVACAINE 5 MG/ML 20 ML AMPULE ONE (10:27)
[2022-04-06] MEDS ORDERED: fentaNYL (PF) 50 MCG/ML 5 ML AMP ONE (10:27)
[2022-04-06] MEDS ORDERED: SIMETHICONE 80 MG CHEWABLE PO PRN (14:19)
[2022-04-06] MEDS ORDERED: diphenhydrAMINE 25 MG CAP PO PRN (14:19)
[2022-04-06] MEDS ORDERED: diphenhydrAMINE 50 MG/ML 1 ML VIAL IVP PRN ×2 (14:19)
[2022-04-06] MEDS ORDERED: HYDROCORTISONE 2.5% RECTAL CREAM 30 GM TUBE RECTAL PRN (14:19)
[2022-04-06] MEDS ORDERED: BENZOCAINE/MENTHOL SPRAY 1 GM/SPRAY AEROSOL TOPICAL PRN (14:19)
[2022-04-06] MEDS ORDERED: diphenhydrAMINE 50 MG CAP PO PRN (14:19)
[2022-04-06] MEDS ORDERED: LANOLIN CREAM 5 GM TUBE TOPICAL PRN (14:19)
[2022-04-06] MEDS ORDERED: ZOLPIDEM 5 MG TAB PO PRN (14:19)
--- NOTE | 2022-04-06 14:22 | P.PROBDLV ---
Vaginal Delivery Note - . Vaginal Delivery Note: this is a 31-year-old 011 that presented to labor and delivery at 40-5/7 weeks for induction of labor secondary to postdates. Patient has been receiving routine care without complication. Patient was admitted to labor and delivery Pitocin induction of labor was begun. Patient underwent amniotomy and copious clear fluid was appreciated. heart tones have been category 2 with reassuring accelerations. Patient did have an attempted epidural placement but secondary to prior scoliosis surgery and intrathecal medication was dosed. Patient received minimal relief through this option. Patient then began using nitrous for pain control. Patient had good relief with nitrous and progressed to complete patient began pushing and had a normal spontaneous vaginal delivery of a viable female with a tight nuchal cord that was delivered through. A spontaneous cry was noted at . After a two-minute delayed the umbilical cord was doubly clamped and cut and the infant was handed to the maternal abdomen. On inspection the patient's vaginal vault a second degree midline laceration was appreciated and repaired in the usual fashion with 3-0 Rapide after instillation of lidocaine. After repair hemostasis of the laceration was noted. Uterus is noted be firm and below the umbilicus.Patient and tolerated delivery well and are resting comfortably.
--- NOTE | 2022-04-06 14:23 | P.HPOB ---
History of Present Illness H&P Date: 04/06/22 Chief Complaint: IUP at 40-5/7 weeks This is a 31-year-old at 40-5/7 weeks that presents to labor and delivery for induction of labor secondary to postdates. Patient has been receiving routine care which has been essentially uncomplicated. Patient notes good movement and occasional contraction this morning. on blood type she has a blood type of O-, rubella status immune, RPR is nonreactive, B surface antigen negative, group beta strep cultures negative. Review of Systems Constitutional: Denies chills, Denies fatigue, Denies fever Ears, nose, mouth and throat: Denies headache Cardiovascular: Denies leg edema Respiratory: Denies dyspnea Gastrointestinal: Denies constipation, Denies diarrhea, Denies nausea, Denies vomiting Genitourinary: Reports Past Medical History Past Medical History: No Reported History History of Any Multi-Drug Resistant Organisms: None Reported Past Surgical History: Back Surgery, Hernia Repair Additional Past Surgical History / Comment(s): eye surgery Past Anesthesia/Blood Transfusion Reactions: No Reported Reaction Past Psychological History: Anxiety Smoking Status: Never smoker Past Alcohol Use History: None Reported Past Drug Use History: None Reported - Past Family History Father Family Medical History: Cancer Additional Family Medical History / Comment(s): colon ca Medications and Allergies Home Medications Medication Instructions Recorded Confirmed Type Bso-Luha-Hxket Acid 1 cap PO DAILY 02/12/20 04/06/22 History [-U Capsule (formulary)] Aspirin [Children's Aspirin] 81 mg PO DAILY 04/02/22 04/06/22 History Allergies Allergy/AdvReac Type Severity Reaction Status Date / Time cefpodoxime [From Vantin] Allergy Unknown Verified 04/02/22 12:51 clarithromycin [From Biaxin] Allergy Unknown Verified 04/02/22 12:51 Exam Osteopathic Statement: *. No significant issues noted on an osteopathic structural exam other than those noted in the History and Physical/Consult. Vital Signs Temp Pulse Resp BP 04/06/22 06:31 97.4 F L 84 16 147/92 Intake and Output 04/05/22 04/06/22 04/06/22 22:59 06:59 14:59 Other: Weight 68.039 kg Targeted physical exam is performed in this date and slip filler a well-nourished well-developed female in no acute distress, breathing is nonlabored, heart has a regular rate and rhythm, abdomen is gravid, on cervical exam she is 4/80/-2 station bulging bag of carroll appreciated amniotomy is performed and copious clear fluid was obtained. heart tones returned be category 1 and she is maite every 3 minutes, Pitocin is at 4. Results Result Diagrams: 04/06/22 06:35 Assessment and Plan (1) Post-dates Current Visit: Yes Status: Acute Code(s): O48.0 - POST-TERM SNOMED Code(s): 57233604 Plan: 31-year-old at 40 5/7 weeks that presents to labor and delivery for induction of labor. Patient is admitted and Pitocin induction of labor is begun per hospital protocol. Amniotomy was performed and copious clear fluid is obtained without difficulty. Patient does desire epidural when uncomfortable, anesthesia will be notified. Anticipate spontaneous vaginal delivery later today.
[2022-04-06] MEDS: IBUPROFEN 600 MG TAB PO SCH ×2 (14:34→21:53)
[2022-04-06] MEDS: ACETAMINOPHEN TAB 325 MG TAB PO PRN (20:14)
[2022-04-06] MEDS: SENNOSIDES-DOCUSATE SODIUM 1 EACH TAB PO SCH (20:14)
[2022-04-07] MEDS: ACETAMINOPHEN TAB 325 MG TAB PO PRN ×3 (02:45→12:14)
[2022-04-07] MEDS: LACTATED RINGERS 1,000 ML IV SCH (02:58)
[2022-04-07] MEDS: IBUPROFEN 600 MG TAB PO SCH ×2 (04:14→09:28)
--- NOTE | 2022-04-07 08:46 | P.DS ---
Providers Date of admission: 04/06/22 06:11 Expected date of discharge: 04/07/22 Attending physician: Chelsea Kim Primary care physician: Jose Elias Joseph - Discharge Diagnosis(es) (1) Post-dates Current Visit: Yes Status: Acute (2) Perineal laceration, second degree Current Visit: Yes Status: Acute (3) Normal spontaneous vaginal delivery Current Visit: No Status: Acute (4) Nuchal cord Current Visit: No Status: Acute Hospital Course: this is a 31-year-old G3 now P2 012 that presented to labor and delivery yesterday at 40-5/7 weeks for induction of labor secondary to postdates. Patient was admitted and Pitocin induction of labor was begun. Patient underwent amniotomy and copious clear fluid was obtained. Patient had been receiving routine care with myself which is been essentially uncomplicated. Patient did become uncomfortable and requested epidural placement. Epidural was unable to be placed by the anesthesia department and an intrathecal was placed with 2 doses of fentanyl and no relief of her contraction pain. Patient then requested nitrous for pain relief. Patient did get moderate relief of the contractions with nitrous. patient progressed in labor eventually becoming complete. Viable female infant delivered at 1357, weight of 7 lbs. 10 oz., Apgars of 8 and 9 at one and 5 minutes respectively. Patient did sustain a second-degree midline laceration which was repaired in usual fashion with 3-0 Rapide. Patient is done well . On this day #1 she is ambulating and voiding without difficulty. She is tolerating a regular diet without nausea or vomiting. She she states her pain is well-controlled. She is breast-feeding without difficulty. She denies concerns and would like discharge home at 24 hours if possible. Patient Condition at Discharge: Good Plan - Discharge Summary New Discharge Prescriptions: No Action Shr-Prjj-Dwqzg Acid [-U Capsule (formulary)] 1 cap PO DAILY Aspirin [Children's Aspirin] 81 mg PO DAILY Discharge Medication List Zww-Liwf-Vawrk Acid [-U Capsule (formulary)] 1 cap PO DAILY 02/12/20 [History] Aspirin [Children's Aspirin] 81 mg PO DAILY 04/02/22 [History] Follow up Appointment(s)/Referral(s): Chelsea Kim DO [Doctor of Osteopathic Medicine] - 4 Weeks Patient Instructions/Handouts: Vaginal Delivery (DC), Vaginal Delivery (GEN) Activity/Diet/Wound Care/Special Instructions: no tub baths or intercourse until 6 weeks . Patient is counseled on bleeding precautions. Wphw-uos-fmhcsgi ibuprofen 600 mg as needed for pain. Patient is counseled to make a visit appointment in 4 weeks. Patient is counseled should she have any concerns prior to this appointment she is asked to call the office. Discharge Disposition: HOME SELF-CARE
[2022-04-07] MEDS ORDERED: PRENATAL VIT-IRON-FOLIC ACID 1 EACH TABLET PO SCH (09:00)
[2022-04-07] MEDS: SENNOSIDES-DOCUSATE SODIUM 1 EACH TAB PO SCH (09:27)
[2022-04-07 12:02] VITALS: BP 136/82; PULSE 69; RESP 16; TEMP 98.2
== END 2022-04-07 15:00 | disposition home or self-care (01) | DRG 806 ==
LOC: 4FBP 04-06 06:11
PROVIDERS: ADMIT Obstetrics & Gynecology Obstetrics; ATTEND Obstetrics & Gynecology Obstetrics
PROC: 10E0XZZ Delivery of Products of Conception, External Approach (ICD-10-PCS; principal; 2022-04-06)
PROC: 0KQM0ZZ Repair Perineum Muscle, Open Approach (ICD-10-PCS; 2022-04-06)
PROC: 10907ZC Drainage of Amniotic Fluid, Therapeutic from Products of Conception, Via Natural or Artificial Opening (ICD-10-PCS; 2022-04-06)
PROC: 3E033VJ Introduction of Other Hormone into Peripheral Vein, Percutaneous Approach (ICD-10-PCS; 2022-04-06)
PROC: 4A0HXCZ Measurement of Products of Conception, Cardiac Rate, External Approach (ICD-10-PCS; 2022-04-06)
DX: O76 Abnormality in fetal heart rate and rhythm complicating labor and delivery (principal); O99.354 Diseases of the nervous system complicating childbirth; Z37.0 Single live birth; O69.1XX0 Labor and delivery complicated by cord around neck, with compression, not applicable or unspecified; O48.0 Post-term pregnancy; O70.1 Second degree perineal laceration during delivery; F41.9 Anxiety disorder, unspecified; O99.344 Other mental disorders complicating childbirth; Z3A.40 40 weeks gestation of pregnancy; Z79.82 Long term (current) use of aspirin; Z88.1 Allergy status to other antibiotic agents; Z87.19 Personal history of other diseases of the digestive system; M41.9 Scoliosis, unspecified
CPT/HCPCS: 85025; 86850; 86870; 86880; 86900; 86901